=== PATIENT | male | born 1960 | race Caucasian/White ===

== ENCOUNTER 2022-12-21 21:18 | Emergency (ER) | payer BC ==
[2022-12-21] MEDS ORDERED: Adenosine 6 MG/2 ML SDV ONE (21:30)
[2022-12-21] MEDS ORDERED: Adenosine 12 MG/4 ML SDV ONE (21:30)
[2022-12-21] MEDS: Adenosine 6 MG/2 ML SDV IVPUSH ONE ×2 (21:40→22:43)
[2022-12-21 21:54] LABS: BASOPHILS ABSOLUTE AUTO 0.1 K/mm3 (0.0-0.2); BASOPHILS PERCENT AUTO 0.6 % (0.0-1.0); EOSINOPHILS ABSOLUTE AUTO 0.2 K/mm3 (0.0-0.4); EOSINOPHILS PERCENT AUTO 2.4 % (0.0-6.0); HEMATOCRIT 46.8 % (42.0-52.0); HEMOGLOBIN 16.3 gm/dl (14.0-18.0); IMMATURE GRAN ABSOLUTE AUTO 0.02 K/mm3 (0.00-0.05); IMMATURE GRAN PERCENT AUTO 0.2 % (0.0-0.4); LYMPHOCYTES ABSOLUTE AUTO 3.9 K/mm3 (1.0-4.8); LYMPHOCYTES PERCENT AUTO 39.9 % (24.0-44.0); MEAN CORPUSCULAR HEMOGLOBIN 30.9 pg (28.0-32.0); MEAN CORPUSCULAR HGB CONC 34.8 g/dl (32.0-36.0); MEAN CORPUSCULAR VOLUME 88.6 fl (83.0-99.0); MEAN PLATELET VOLUME 11.4 fl (9.4-12.4); MONOCYTES ABSOLUTE AUTO 1.5 K/mm3 (0.0-0.8); NEUTROPHILS ABSOLUTE AUTO 4.1 K/mm3 (1.8-7.7); NEUTROPHILS PERCENT AUTO 41.9 % (41.0-71.0); PLATELET COUNT,PLT 311 K/mm3 (150-400); RED BLOOD CELL COUNT 5.28 M/mm3 (4.52-5.90); WHITE BLOOD CELL COUNT,WBC 9.85 K/mm3 (3.9-11.3)
[2022-12-21 22:14] LABS: BUN/CREATININE RATIO 17.9 (14-18); CALCIUM 9.1 mg/dL (8.5-10.1); CREATININE 1.4 mg/dL (0.7-1.3); EST CRCL DRUG DOSING (CG) 63.41 mL/min; MAGNESIUM 1.9 mg/dL (1.8-2.4)
[2022-12-21] MEDS ORDERED: Adenosine 6 MG/2 ML SDV IVPUSH ONE (22:22)
[2022-12-21] MEDS ORDERED: Potassium Chloride 20 MEQ Tab.ER PO ONE (22:49)
[2022-12-21 23:09] LABS: CORONAVIRUS COVID-19 NAA NEGATIVE (NEGATIVE); INFLUENZA A NAA NEGATIVE (NEGATIVE)
== END 2022-12-22 00:02 | disposition home or self-care (01) ==
LOC: JD.ED 21:18
DX: I47.10 Supraventricular tachycardia, unspecified (principal); E87.6 Hypokalemia; B34.9 Viral infection, unspecified; N28.9 Disorder of kidney and ureter, unspecified; Z20.822 Contact with and (suspected) exposure to COVID-19
CPT/HCPCS: 0240U; 36415; 80048; 83735; 84484; 85025; 93005; 96374; 99285; A9270; J0153; 93010; 99284

== ENCOUNTER 2023-08-29 06:00 | Day surgery (SDC) | payer BC ==
[~2023-08-29 06:00] MED LIST: Sodium Chloride 0.9% 10 ML Syringe FLUSH PRN; Sodium Chloride 0.9% 10 ML Syringe FLUSH SCH
[2023-08-29] MEDS: Lactated Ringers 1,000 ML IV SCH (06:15)
[2023-08-29] MEDS ORDERED: Midazolam 1 MG/ML 2 ML SDV ONE ×2 (06:18→07:24)
[2023-08-29] MEDS ORDERED: Propofol 200 MG/20 ML SDV ONE ×4 (06:18→08:28)
[2023-08-29] MEDS ORDERED: ceFAZolin 2 GM Vial ONE ×2 (06:18→06:54)
[2023-08-29] MEDS: Acetaminophen 325 MG Tab PO ONE (06:36)
[2023-08-29] MEDS: Pregabalin 25 MG Cap PO ONE (06:36)
[2023-08-29] MEDS: oxyCODONE ER 10 MG TAB.ER PO ONE (06:36)
[2023-08-29] MEDS ORDERED: Ondansetron 4 MG/2 ML SDV IVPUSH PRN (06:46)
[2023-08-29] MEDS ORDERED: fentaNYL 100 MCG/2 ML SDV IVPUSH PRN (06:46)
[2023-08-29] MEDS ORDERED: HYDROmorphone 0.5 MG/0.5 ML Syringe IVPUSH PRN (06:46)
[2023-08-29] MEDS ORDERED: Lactated Ringers 1,000 ML ONE (07:11)
[2023-08-29] MEDS ORDERED: Lidocaine 1% 4 ML ONE (07:19)
[2023-08-29] MEDS: Tranexamic Acid 1,000 MG/10 ML Vial ONE (08:23)
[2023-08-29] MEDS: Vancomycin 1 GM SDV ONE (08:23)
[2023-08-29] MEDS: Morphine 8 MG, EPINEPHrine 0.3 MG, Cefuroxime 750 MG, Ketorolac 30 MG, Sodium Chloride ... PRN (08:23)
[2023-08-29] MEDS ORDERED: Ketorolac 30 MG/ML SDV ONE (08:36)
[2023-08-29] MEDS ORDERED: Ondansetron 4 MG/2 ML SDV ONE (08:36)
[2023-08-29 09:51] LABS: INR 0.99; PROTHROMBIN TIME 10.5 SECONDS (9.7-12.0)
[2023-08-29] MEDS: oxyCODONE 5 MG Tab PO SCH (11:15)
== END 2023-08-29 12:20 | disposition home or self-care (01) ==
LOC: JD.SDS 06:00
PROVIDERS: ATTEND Orthopaedic Surgery
DX: M16.12 Unilateral primary osteoarthritis, left hip (principal); I10 Essential (primary) hypertension; E78.5 Hyperlipidemia, unspecified; E66.9 Obesity, unspecified
CPT/HCPCS: 0055T; 27130; 36415; 73501; 85610; 86850; 86900; 86901; 97110; 97161; A9270; C1713; C1776; J0171; J0690; J0697; J1885; J2250; J2270; J2405; J2704; J3370; J7120; 01214; J3490

== ENCOUNTER 2023-11-29 06:00 | Day surgery (SDC) | payer BC ==
[2023-11-29] MEDS ORDERED: Midazolam 1 MG/ML 2 ML SDV ONE (06:15)
[2023-11-29] MEDS ORDERED: Propofol 200 MG/20 ML SDV ONE ×10 (06:15→08:13)
[2023-11-29] MEDS ORDERED: Ondansetron 4 MG/2 ML SDV ONE (06:17)
[2023-11-29] MEDS ORDERED: ceFAZolin 2 GM Vial ONE ×2 (06:17→06:58)
[2023-11-29] MEDS: Acetaminophen 325 MG Tab PO ONE (06:31)
[2023-11-29] MEDS: Pregabalin 25 MG Cap PO ONE (06:31)
[2023-11-29] MEDS: oxyCODONE ER 10 MG TAB.ER PO ONE (06:31)
[2023-11-29] MEDS: Lactated Ringers 1,000 ML IV SCH (06:32)
[2023-11-29] MEDS ORDERED: ePHEDrine 50 MG/ML SDV ONE (06:58)
[2023-11-29] MEDS ORDERED: Ketamine 200 MG/20 ML MDV ONE (07:36)
[2023-11-29] MEDS ORDERED: HYDROmorphone 0.5 MG/0.5 ML Syringe IVPUSH ONE (07:49)
[2023-11-29] MEDS ORDERED: fentaNYL 100 MCG/2 ML SDV IVPUSH PRN (07:49)
[2023-11-29] MEDS: Morphine 8 MG, EPINEPHrine 0.3 MG, Cefuroxime 750 MG, Ketorolac 30 MG, Sodium Chloride ... PRN (08:10)
[2023-11-29] MEDS: Vancomycin 1 GM SDV ONE (08:11)
[2023-11-29] MEDS: Tranexamic Acid 1,000 MG/10 ML Vial ONE (08:11)
[2023-11-29] MEDS: oxyCODONE 5 MG Tab PO PRN (10:30)
== END 2023-11-29 12:35 | disposition home or self-care (01) ==
LOC: JD.SDS 06:00
PROVIDERS: ATTEND Orthopaedic Surgery
DX: M16.11 Unilateral primary osteoarthritis, right hip (principal); I10 Essential (primary) hypertension; E78.00 Pure hypercholesterolemia, unspecified; E66.812 Obesity, class 2; M67.472 Ganglion, left ankle and foot; L57.0 Actinic keratosis; Z68.38 Body mass index [BMI] 38.0-38.9, adult; Z79.899 Other long term (current) drug therapy
CPT/HCPCS: 0055T; 27130; 36415; 73501; 86850; 86900; 86901; 97116; 97161; A9270; C1713; C1776; J0171; J0690; J0697; J1885; J2250; J2270; J2405; J2704; J3370; J7120; 01214; J2272; J3490